=== PATIENT | female | born 1965 | race Native Hawaiian/Other Pacific Islander ===

== ENCOUNTER → 2018-07-11 15:59 | Outpatient (CLI) | payer OTHER | END | disposition home or self-care (01) | LOC: AMB 15:59 | DX: I46.9 Cardiac arrest, cause unspecified (principal); S09.8XXA Other specified injuries of head, initial encounter; V48.0XXA Car driver injured in noncollision transport accident in nontraffic accident, initial encounter; Y92.413 State road as the place of occurrence of the external cause ==